=== PATIENT | female | born 1995 | race Caucasian/White ===

== ENCOUNTER 2022-07-29 08:10 | Emergency (ER) | payer OTHER ==
[~2022-07-29] VITALS: Ht 177.8 cm; Wt 70.4 kg
[2022-07-29 08:49] LABS: APPEARANCE, URINE HAZY (CLEAR); BACTERIA, URINE AUTO NEGATIVE (NEGATIVE); BILIRUBIN, URINE AUTO NEGATIVE (NEGATIVE); BLOOD, URINE BLOOD NEGATIVE (NEGATIVE); COLOR, URINE YELLOW (YELLOW); GLUCOSE, URINE (UA) AUTO NEGATIVE (NEGATIVE); KETONE, URINE AUTO NEGATIVE (NEGATIVE); LEUKOCYTE ESTERASE, URINE AUTO NEGATIVE (NEGATIVE); MUCUS, URINE SMALL (NEGATIVE); NITRITE, URINE AUTO NEGATIVE (NEGATIVE); PROTEIN, URINE AUTO NEGATIVE (NEGATIVE); RBC, URINE AUTO 1 /HPF (0-3); SPECIFIC GRAVITY URINE AUTO 1.019 (1.002-1.035); SQUAMOUS EPITHELIAL CELL UR AU 7 /HPF (0-6); UROBILINOGEN, URINE AUTO 0.2 mg/dL (0.0-2.0); WBC, URINE AUTO 0 /HPF (0-3)
[2022-07-29 08:53] LABS: BASO % 0.5 % (0.0-1.0); EOS # 0.1 10^3/uL (0.0-0.5); EOS % 1.6 % (0.0-3.0); HEMATOCRIT 40.8 % (36.0-47.0); HEMOGLOBIN 13.3 g/dl (12.0-15.5); LYMPH # 1.5 10^3/uL (1.5-5.0); LYMPH % 27.4 % (24.0-44.0); MEAN CORPUSCULAR HEMOGLOBIN 28.2 pg (27.0-33.0); MEAN CORPUSCULAR HGB CONC 32.6 g/dl (32.0-36.5); MEAN CORPUSCULAR VOLUME 86.4 fl (80.0-96.0); MONO # 0.4 10^3/uL (0.0-0.8); MONO % 7.4 % (2.0-8.0); NEUTROPHILS # 3.5 10^3/uL (1.5-8.5); NEUTROPHILS % 62.9 % (36.0-66.0); PLATELET COUNT, AUTOMATED 246 10^3/uL (150-450); RED BLOOD COUNT 4.72 10^6/uL (4.00-5.40); WHITE BLOOD COUNT 5.5 10^3/uL (4.0-10.0)
[2022-07-29 09:09] LABS: BLOOD UREA NITROGEN 11 MG/DL (9-23); CARBON DIOXIDE LEVEL 26 MMOL/L (20-31); CHLORIDE LEVEL 107 MMOL/L (98-107); CREATININE FOR GFR 0.93 MG/DL (0.55-1.30); GLOMERULAR FILTRATION RATE > 60.0 (>60); GLUCOSE, FASTING 76 MG/DL (60-100); POTASSIUM SERUM 4.4 MMOL/L (3.5-5.1); SODIUM LEVEL 139 MMOL/L (136-145)
[2022-07-29 09:26] LABS: HCG, SERUM QUANTITATIVE 23774.3 MIU/ML (<4.2)
[2022-07-29 11:23] VITALS: BP 121/58
== END 2022-07-29 11:29 | disposition home or self-care (01) ==
LOC: M ED 08:10
DX: O99.891 Other specified diseases and conditions complicating pregnancy (principal); N93.0 Postcoital and contact bleeding

== ENCOUNTER → 2022-08-01 | Outpatient (CLI) | payer OTHER | LOC: M LAB 09:58 | PROVIDERS: ATTEND Physician Assistant | DX: O46.90 Antepartum hemorrhage, unspecified, unspecified trimester (principal); Z3A.00 Weeks of gestation of pregnancy not specified ==

== ENCOUNTER 2023-03-20 10:42 | Outpatient (CLI) | payer OTHER ==
[~2023-03-20] VITALS: Ht 177.8 cm; Wt 83.7 kg
[2023-03-20] MEDS ORDERED: PREN1TAB11 PO (11:00)
[2023-03-20 11:03] VITALS: BP 146/79; O2SAT 100
[2023-03-20] MEDS ORDERED: HOME MED LIST COMPLETE! XX SCH (11:05)
[2023-03-20 11:08] VITALS: BP 142/76
[2023-03-20 11:57] VITALS: BP 138/80
== END 2023-03-20 12:35 ==
LOC: M LDO 10:42
PROVIDERS: ATTEND Obstetrics & Gynecology
DX: O47.1 False labor at or after 37 completed weeks of gestation (principal); O26.893 Other specified pregnancy related conditions, third trimester; R03.0 Elevated blood-pressure reading, without diagnosis of hypertension; Z3A.39 39 weeks gestation of pregnancy
CPT/HCPCS: 59025; G0463

== ENCOUNTER 2023-03-24 08:05 | Inpatient (IN) | payer OTHER ==
[2023-03-24] VITALS (26 sets, daily range): BP systolic 119–154; BP diastolic 65–91; O2SAT 98
[~2023-03-24] VITALS: Ht 177.8 cm; Wt 83.9 kg
[~2023-03-24 08:05] MED LIST: PREN1TAB11 PO
[2023-03-24] MEDS ORDERED: LACTATED RINGER'S 1000 ML IV STA (08:17)
[2023-03-24] MEDS ORDERED: METHYLERGONOVINE MALEATE 0.2MG/ML 1ML VIAL IM PRN (08:20)
[2023-03-24] MEDS ORDERED: TRANEXAMIC ACID INJection 1,000 MG in NS 100 ML IV PRN (08:20)
[2023-03-24] MEDS ORDERED: OXYTOCIN DRIP 30 UNITS in IV 1 EA IV PRN ×6 (08:20)
[2023-03-24] MEDS ORDERED: HOME MED LIST COMPLETE! XX SCH (08:20)
[2023-03-24] MEDS ORDERED: LR 1,000 ML IV SCH (08:20)
[2023-03-24] MEDS ORDERED: LIDOCAINE 1% MDV 20ML VIAL INFIL PRN (08:20)
[2023-03-24] MEDS ORDERED: OXYTOCIN INJ 10UNITS/ML 1ML VIAL IM PRN (08:20)
[2023-03-24] MEDS ORDERED: CARBOPROST TROMETHAMINE 250 MCG/ML AMP IM PRN (08:20)
[2023-03-24 09:28] LABS: HEMATOCRIT 39.1 % (36.0-47.0); HEMOGLOBIN 13.3 g/dl (12.0-15.5); MEAN CORPUSCULAR HEMOGLOBIN 28.7 pg (27.0-33.0); MEAN CORPUSCULAR VOLUME 84.3 fl (80.0-96.0); PLATELET COUNT, AUTOMATED 200 10^3/uL (150-450); RED BLOOD COUNT 4.64 10^6/uL (4.00-5.40); WHITE BLOOD COUNT 8.5 10^3/uL (4.0-10.0)
[2023-03-24] MEDS ORDERED: miSOPROStol 50MCG 1/2 TABLET PO SCH (10:00)
[2023-03-24 11:02] LABS: ALBUMIN 2.6 G/DL (3.2-5.2); ALKALINE PHOSPHATASE 224 U/L (46-116); ALT/SGPT 60 U/L (7.0-40); AST/SGOT 45 U/L (<34); BILIRUBIN,TOTAL 0.3 MG/DL (0.3-1.2); BLOOD UREA NITROGEN 10 MG/DL (9-23); CALCIUM LEVEL 8.7 MG/DL (8.5-10.1); CARBON DIOXIDE LEVEL 22 MMOL/L (20-31); CHLORIDE LEVEL 110 MMOL/L (98-107); CREATININE FOR GFR 0.77 MG/DL (0.55-1.30); GLOMERULAR FILTRATION RATE > 60.0 (>60); GLUCOSE, FASTING 73 MG/DL (60-100); POTASSIUM SERUM 3.9 MMOL/L (3.5-5.1); SODIUM LEVEL 142 MMOL/L (136-145); TOTAL PROTEIN 6.2 G/DL (5.7-8.2)
[2023-03-24 11:13] LABS: TOTAL PROTEIN,RANDOM URINE 41.5 MG/DL (0.0-14.0)
[2023-03-24 11:18] LABS: CREATININE,RANDOM URINE 162.6 MG/DL
[2023-03-24] MEDS ORDERED: OXYTOCIN DRIP 30 UNITS in IV 1 EA IV SCH (11:35)
[2023-03-24] MEDS: LR 1,000 ML IV SCH ×2 (14:17→17:04)
[2023-03-24] MEDS ORDERED: ONDANSETRON 4MG 2ML VIAL IV PRN (16:35)
[2023-03-24] MEDS ORDERED: ePHEDrine SULFATE 25 MG/5 ML(5MG/ML) SYRINGE IVP PRN (16:35)
[2023-03-24] MEDS ORDERED: FENTANYL/ROPIVACAINE/NACL BAG 100 ML EPIDURAL SCH (16:35)
[2023-03-24] MEDS ORDERED: LR 500 ML IV PRN (16:35)
[2023-03-24] MEDS ORDERED: diphenhydrAMINE 50MG/ML VIAL IV PRN (16:35)
[2023-03-24] MEDS ORDERED: EPIDURAL/PCA KEYS XX PRN (16:35)
[2023-03-24] MEDS ORDERED: NALOXONE INJ 0.4MG/1ML VIAL IV PRN (16:35)
[2023-03-24] MEDS ORDERED: AZITHROMYCIN INJ 500 MG, VIAL MATE ADAPTER 1 EACH in NS 250 ML IV ONE (23:30)
[2023-03-24] MEDS ORDERED: ceFAZolin SOD 2 GM in IV 1 EA IV ONE (23:30)
[2023-03-24] MEDS ORDERED: BICITRA 30ML SOLN UDC PO ONE (23:30)
[2023-03-25 00:07] LABS: CORD GAS HCO3 A 20.5 MMOL/L; CORD GAS O2 SAT A 46.2 %; CORD GAS PCO2 A 48.1 mmHg; CORD GAS PH A 7.247 UNITS; CORD GAS PO2 A 21.9 mmHg; CORD GAS SBC A 17.7 MMOL/L
[2023-03-25 00:09] LABS: CORD GAS ABE V -3.1; CORD GAS HCO3 V 22.2 MMOL/L; CORD GAS O2 SAT V 63.4 %; CORD GAS PH V 7.352 UNITS; CORD GAS PO2 V 25.7 mmHg; CORD GAS TCO2 V 23.5 MMOL/L
[2023-03-25 00:14] VITALS: BP 156/103
[2023-03-25] MEDS: LR 1,000 ML IV SCH ×2 (00:35→08:35)
[2023-03-25] MEDS ORDERED: MOM 30ML SUSPENSION UDC PO PRN (00:35)
[2023-03-25] MEDS ORDERED: DOCUSATE SODIUM 100MG CAPSULE PO PRN (00:35)
[2023-03-25] MEDS ORDERED: OXYTOCIN DRIP 30 UNITS in IV 1 EA IV SCH (00:35)
[2023-03-25] MEDS ORDERED: RHOGAM 300MCG (1500IU) INJ IM SCH (00:35)
[2023-03-25] MEDS ORDERED: ONDANSETRON 4MG 2ML VIAL IV PRN (00:35)
[2023-03-25] MEDS ORDERED: ACETAMINOPHEN 500 MG TAB PO PRN (00:35)
[2023-03-25] MEDS ORDERED: METHYLERGONOVINE MALEATE 0.2 MG TAB PO PRN (00:35)
[2023-03-25] MEDS ORDERED: DIBUCAINE 1% OINTMENT 30GM TOP PRN (00:35)
[2023-03-25] MEDS ORDERED: IBUPROFEN 800 MG TAB PO PRN (00:35)
[2023-03-25 02:30] VITALS: BP 125/72; O2SAT 98
[2023-03-25] MEDS: IBUPROFEN 600MG TAB PO PRN (05:54)
[2023-03-25 06:00] VITALS: BP 126/63; O2SAT 97
[2023-03-25] MEDS: PRENATAL VITAMINS CHEWABLE TABLET PO SCH (09:57)
[2023-03-25] MEDS: ACETAMINOPHEN TAB 650MG DOSE (2X325MG) PO PRN ×2 (09:58→18:07)
[2023-03-25 18:00] VITALS: BP 134/73; O2SAT 100
[2023-03-26] MEDS: IBUPROFEN 600MG TAB PO PRN (00:27)
[2023-03-26 06:00] VITALS: BP 117/66; O2SAT 98
[2023-03-26] MEDS ORDERED: COLA100C5 PO (06:36)
[2023-03-26] MEDS ORDERED: IBUP-1022 PO (06:36)
[2023-03-26] MEDS ORDERED: ACET1TAB55 PO (06:36)
[2023-03-26] MEDS: PRENATAL VITAMINS CHEWABLE TABLET PO SCH (08:44)
[2023-03-27] MEDS ORDERED: MEASLES,MUMPS,RUBELLA VACCINE INJ (MMR-II) SC.IMMUN ONE (09:00)
== END 2023-03-26 12:20 | disposition home or self-care (01) | DRG 807 ==
LOC: M LDI 08:05 → M OBS 03-25 02:25
PROVIDERS: ADMIT Obstetrics & Gynecology; ATTEND Obstetrics & Gynecology
PROC: 10E0XZZ Delivery of Products of Conception, External Approach (ICD-10-PCS; principal; 2023-03-24)
PROC: 0HQ9XZZ Repair Perineum Skin, External Approach (ICD-10-PCS; 2023-03-24)
PROC: 3E033VJ Introduction of Other Hormone into Peripheral Vein, Percutaneous Approach (ICD-10-PCS; 2023-03-24)
DX: O13.4 Gestational [pregnancy-induced] hypertension without significant proteinuria, complicating childbirth (principal); Z37.0 Single live birth; Z3A.40 40 weeks gestation of pregnancy; O64.5XX0 Obstructed labor due to compound presentation, not applicable or unspecified; O70.0 First degree perineal laceration during delivery

== ENCOUNTER 2023-04-12 17:38 | Emergency (ER) | payer OTHER ==
[~2023-04-12] VITALS: Ht 177.8 cm; Wt 72.5 kg
[~2023-04-12 17:38] MED LIST changes: +ACET1TAB55 PO; +COLA100C5 PO; +IBUP-1022 PO
[2023-04-12] MEDS ORDERED: CEPHALEXIN 500 MG CAP PO ONE (21:40)
[2023-04-12] MEDS ORDERED: CEPH500C PO (21:41)
[2023-04-12 21:49] VITALS: BP 114/63; TEMP 97.6; O2SAT 100
== END 2023-04-12 21:52 | disposition home or self-care (01) ==
LOC: M ED 17:38
DX: N61.22 Granulomatous mastitis, left breast (principal); Z79.2 Long term (current) use of antibiotics; Z79.1 Long term (current) use of non-steroidal anti-inflammatories (NSAID); Z79.810 Long term (current) use of selective estrogen receptor modulators (SERMs); Z79.899 Other long term (current) drug therapy

== ENCOUNTER 2023-11-11 09:30 | Emergency (ER) | payer OTHER ==
[~2023-11-11] VITALS: Ht 177.8 cm; Wt 73.4 kg
[~2023-11-11 09:30] MED LIST changes: +CEPH500C PO
[2023-11-11] MEDS ORDERED: PENI500T PO (11:54)
[2023-11-11 12:13] VITALS: BP 121/69; TEMP 97.6; O2SAT 100
== END 2023-11-11 12:12 | disposition home or self-care (01) ==
LOC: M ED 09:30
DX: J02.0 Streptococcal pharyngitis (principal)

== ENCOUNTER → 2024-07-20 | Outpatient (CLI) | payer OTHER ==
[~2024-07-20] MED LIST changes: +PENI500T PO
== END ==
LOC: M WHC 11:43
PROVIDERS: ATTEND Obstetrics & Gynecology
DX: O28.9 Unspecified abnormal findings on antenatal screening of mother (principal); Z3A.32 32 weeks gestation of pregnancy

== ENCOUNTER → 2024-08-10 | Outpatient (CLI) | payer OTHER | LOC: M WHC 09:51 | PROVIDERS: ATTEND Obstetrics & Gynecology | DX: O28.9 Unspecified abnormal findings on antenatal screening of mother (principal); Z3A.35 35 weeks gestation of pregnancy ==

== ENCOUNTER 2024-11-03 15:12 | Emergency (ER) | payer OTHER ==
[~2024-11-03] VITALS: Ht 177.8 cm; Wt 73.3 kg
[2024-11-03 18:39] LABS: BASO # 0.0 10^3/uL (0.0-0.2); BASO % 0.4 % (0.0-1.0); EOS # 0.1 10^3/uL (0.0-0.5); EOS % 1.4 % (0.0-3.0); LYMPH # 1.9 10^3/uL (1.5-5.0); LYMPH % 26.8 % (24.0-44.0); MONO # 0.4 10^3/uL (0.0-0.8); MONO % 6.0 % (2.0-8.0); NEUTROPHILS # 4.6 10^3/uL (1.5-8.5); NEUTROPHILS % 65.3 % (36.0-66.0); PLATELET COUNT, AUTOMATED 287 10^3/uL (150-450)
[2024-11-03 19:46] LABS: CALCIUM LEVEL 9.1 MG/DL (8.5-10.1); CARBON DIOXIDE LEVEL 26 MMOL/L (20-31); CHLORIDE LEVEL 105 MMOL/L (98-107); CREATININE FOR GFR 0.89 MG/DL (0.55-1.30); GLOMERULAR FILTRATION RATE > 90.0 (>60); POTASSIUM SERUM 4.3 MMOL/L (3.5-5.1); SODIUM LEVEL 143 MMOL/L (136-145)
[2024-11-03 19:58] VITALS: BP 124/72; O2SAT 100
[2024-11-03 20:10] VITALS: TEMP 97.8
== END 2024-11-03 20:13 | disposition home or self-care (01) ==
LOC: M ED 15:12
DX: N93.8 Other specified abnormal uterine and vaginal bleeding (principal); Z97.5 Presence of (intrauterine) contraceptive device

== ENCOUNTER 2025-02-24 13:11 | Emergency (ER) | payer OTHER ==
[~2025-02-24] VITALS: Ht 177.8 cm; Wt 72.5 kg
[~2025-02-24 13:11] MED LIST changes: -IBUP-1022 PO; +IBUP600T42 PO
[2025-02-24 13:13] VITALS: BP 130/66; TEMP 97.7; O2SAT 99
[2025-02-24] MEDS: PROPARACAINE 0.5% OPHTH SOL 15ML OS ONE (15:34)
[2025-02-24] MEDS: FLUORESCEIN OPHTH 1 MG STRIP OS ONE (15:34)
[2025-02-24] MEDS ORDERED: AMOX875T2 PO (15:47)
[2025-02-24] MEDS ORDERED: ERYT5OIN25 OS (15:47)
== END 2025-02-24 16:05 | disposition home or self-care (01) ==
LOC: M ED 13:11
DX: S05.02XA Injury of conjunctiva and corneal abrasion without foreign body, left eye, initial encounter (principal); L03.213 Periorbital cellulitis